=== PATIENT | female | born 1950 | race Caucasian/White ===

== ENCOUNTER 2021-11-17 09:23 | Emergency (ER) | payer MEDICARE, SELFPAY ==
[2021-11-17] VITALS (8 sets, daily range): BP systolic 140–157; BP diastolic 67–72; PULSE 68–92; RESP 14–20; TEMP 36.3; O2SAT 100
--- NOTE | ~2021-11-17 | CT_ITS ---
EXAMINATION: CT knee LT wo con DATE: 11/17/2021 12:31 INDICATION: Left knee pain post fall TECHNIQUE: High resolution computed tomography (CT) of the left knee was performed without intravenou s contrast. Additional sagittal and coronal reconstructions were performed. Automated exposure contro l and iterative reconstruction technique were employed. The dose-length product was 517.10 mGy-cm. COMPARISON: Left knee radiographs dated 11/17/2021 FINDINGS: Bone alignment is normal. No fracture. At least mild osteoarthritis with mild joint space narrowing i n the medial and patellofemoral compartments. No left knee joint effusion with small physiologic amou nt of fluid at the suprapatellar pouch. Mild cystic change at the posterior medial margin of the prox imal tibia underlying the footplate of the semimembranosus tendon. Soft tissues are unremarkable with no evident soft tissue swelling or reactive edema. Minimal vascular calcification along the normal c aliber popliteal artery. IMPRESSION: 1. No left knee joint effusion or acute osseous abnormality. Reviewed, dictated and finalized at location A. RANCE CLAIMS REPRESENTATIVE
--- NOTE | ~2021-11-17 | XR_ITS ---
XR knee LT 3V DATE: 11/17/2021 10:30 INDICATION: Fall today. Lateral pain. TECHNIQUE: 4 views including crosstable lateral COMPARISON: None FINDINGS: There is diffuse osteopenia. No fracture or dislocation or joint effusion is evident. No periosteal reaction or bone destruction. No radiopaque intra-articular loose body or chondral calcinosis. Mild loss of height of medial compartment joint space. IMPRESSION: Osteopenia and mild degenerative change No fracture or dislocation or joint effusion is detected Reviewed, dictated and finalized at location B. K OUT MAN
[2021-11-17] MEDS: HYDROcodone/acetaminophen (*CRX) 5-325 MG TABLET 1 TAB PO (10:00)
--- NOTE | 2021-11-17 10:07 | ED.GENADULT ---
HPI - General Adult General Chief complaint: Extremity Injury, Lower Stated complaint: knee injury Time Seen by Provider: 11/17/21 09:32 Source: patient and family (Daughter) Mode of arrival: EMS Limitations: no limitations History of Present Illness HPI narrative: Patient is 71-year-old female presented with chief complaint of left knee pain that has been progressively worsening over the past 2 to 3 weeks. Patient reports that she was working at the [employer] which requires a lot of standing as a part-time job but she continued to have knee pain which she attributes to repetitive pivoting and standing. Patient reports that she does have arthritis. Patient reports today she was in her bathroom when her knee gave out causing her to fall. Patient reports that she hit the left brow area of her head. Patient so her daughter that she passed out, the patient states she may have just been foggy. Patient reports that she was unable to get herself up so she called her daughter and a ambulance was contacted. Patient denies chest pain, shortness of breath, fever, chills, nausea, vomiting, prior surgeries to the knee. Patient reports that she takes aspirin daily but denies any other anticoagulant use. Patient denies changes in her vision or hearing, speech or motor delay or deficit. Related Data Home Medications Medication Instructions Recorded Confirmed aspirin 81 mg tablet,delayed 81 mg PO DAILY 08/29/19 08/02/21 release cholecalciferol (vitamin D3) 10 10 mcg PO DAILY 08/02/21 08/02/21 mcg (400 unit) capsule magnesium 250 mg tablet 250 mg PO DAILY 08/02/21 08/02/21 Allergies Allergy/AdvReac Type Severity Reaction Status Date / Time No Known Allergies Allergy Unverified 08/02/21 10:04 Review of Systems Review of Systems: CONSTITUTIONAL: Denies fever, chills, or sweats. EYES: Denies visual changes, redness, or discharge. ENT: Denies rhinorrhea, congestion, sore throat, or otalgia. CARDIOVASCULAR: Denies chest pain, palpitations, or edema. RESPIRATORY: Denies cough or dyspnea. GASTROINTESTINAL: Denies abdominal pain, nausea, vomiting, or diarrhea. GENITOURINARY: Denies dysuria or hematuria. SKIN: Denies rash or itching. MUSCULOSKELETAL: Reports left knee pain denies back pain, joint pain, or myalgia. NEUROLOGIC: Denies headache, numbness, dizziness, or weakness. PSYCHIATRIC: Denies anxiety or depression. FOR[facility]LY [facility] Past Medical History Medical History Hypertension Family History Family History Mother Acute myocardial infarction Cerebrovascular accident Grandparent Cerebrovascular accident Social History Social History Social History: , lives in [place], [place]. Smoking status: Former smoker Second hand tobacco smoke exposure: No Alcohol intake: current Alcohol use details: Drinks 2 glasses of wine nightly. lives in [place]. Exam Narrative: GENERAL: Well-appearing, well-nourished, and in no acute distress. HEAD: Normocephalic, contusion noted to left brow. EYES: PERRLA and EOMI. ENT: Nares clear, no rhinorrhea or epistaxis. Mucous membranes moist. Oropharynx without tonsillar hypertrophy exudate or other lesions. Bilateral TMs pearly hudson nonbulging. No hemotympanum. NECK: Supple. Nontender to palpation. Range of motion intact. CHEST: Clear to auscultation. No respiratory distress. No wheezes rales or rhonchi HEART: Regular rate and rhythm. EXTREMITIES: Patient refuses to flex the knee. Pain with palpation to the medial aspect of the knee. No erythema present however there is edema noted when compared to the right knee. No calf pain or tenderness. Patient will not tolerate anterior or posterior drawer test. SKIN: Warm, dry, no rash. NEURO: No focal deficits. Alert and oriented x3. Speech clear and appropriate
--- NOTE | 2021-11-17 12:30 | PC.NURSE ---
When trying to discharge patient patient was yelling out in pain stating I cannot take care of myself like this. JUSTIN Rouse notified
[2021-11-17] MEDS: MORPHINE SULFATE INJ (*CRX) 10 MG/ML AMP 2 MG IM (12:50)
--- NOTE | 2021-11-17 12:57 | PC.NURSE ---
Patient voided in pants and said I cannot take care of myself at home if I'm going to do this. I cannot move I don't know what you want me to do. there is no way I can go home like this
--- NOTE | 2021-11-17 13:33 | PC.NURSE ---
patient refused to leave because daughter and pt. stated they cannot take care of herself at home because she is in to much pain.
[2021-11-17] MEDS: IBUPROFEN 600 MG TABLET PO (13:43)
== END 2021-11-17 14:28 | disposition home or self-care (01) ==
PROVIDERS: Emergency Provider Emergency Medicine; PCP Nurse Practitioner Family
DX: S83.92XA Sprain of unspecified site of left knee, initial encounter (principal); S09.90XA Unspecified injury of head, initial encounter; I10 Essential (primary) hypertension; X50.3XXA Overexertion from repetitive movements, initial encounter
CPT/HCPCS: 73562; 73700; 96372; 99284; A9270; J2270

== ENCOUNTER → 2021-11-25 07:30 | Outpatient (CLI) | payer MEDICARE, SELFPAY ==
--- NOTE | ~2021-11-25 | MR_ITS ---
EXAMINATION: MR knee LT wo con DATE: 11/25/2021 08:16 INDICATION: Primary osteoarthritis of the left knee TECHNIQUE: Magnetic resonance imaging (MRI) of the left knee was performed without intravenous contra st. Sequences included coronal PD-weighted FSE, coronal PD-weighted FS FSE, sagittal T2-weighted FSE , sagittal PD-weighted FS FSE and axial PD weighted fat saturated FSE. COMPARISON: None. FINDINGS: Medial compartment: Medial meniscus is normal. Articular cartilage is normal. Lateral compartment: Lateral meniscus is normal. Articular cartilage is normal. Patellofemoral compartment: Deep chondral ulceration with underlying edema-like marrow signal change at the medial trochlea and c audal aspect of the trochlear groove as well as at the medial patellar facet. Ligaments and tendons: Anterior and posterior cruciate ligaments are normal. The medial collateral ligament and fibular jayne ateral ligament complex are normal. The extensor mechanism is normal. Mild tendinopathy without discr ete tear of the distal semimembranosus tendon with small intra and extra osseous ganglion cysts at th e footplate of the direct head of the semimembranosus tendon. The remaining visualized medial and lat eral hamstring tendons as well as the iliotibial band are normal. Fluid: Physiologic amount of fluid in the joint space. No loose osteochondral bodies identified. Osseous/other: Prominent marrow edema at the lateral femoral condyle surrounding a curvilinear low signal intensity trabecular impaction versus stress or insufficiency fracture line underlying the articular cortex at the anterior weightbearing lateral femoral condyle. Bone marrow signal is otherwise normal. No pathol ogic marrow replacing process. IMPRESSION: 1. Nondisplaced subarticular impaction versus stress or insufficiency fracture underlying the articul ar cortex at the anterior weightbearing lateral femoral condyle. 2. Moderate patellofemoral osteoarthritis with high-grade chondromalacia. Reviewed, dictated and finalized at location A. GER PROTEIN IMPRESSION: 1. Nondisplaced subarticular impaction versus stress or insufficiency fracture underlying the articular cortex at the anterior weightbearing lateral femoral c ondyle. 2. Moderate patellofemoral osteoarthritis with high-grade chondromalacia.
== END ==
PROVIDERS: PCP Nurse Practitioner Family
DX: M17.12 Unilateral primary osteoarthritis, left knee (principal); S72.422A Displaced fracture of lateral condyle of left femur, initial encounter for closed fracture
CPT/HCPCS: 73721

== ENCOUNTER 2023-09-21 16:38 | Emergency (ER) | payer MEDICARE, SELFPAY ==
--- NOTE | ~2023-09-21 | XR_ITS ---
EXAMINATION: XR wrist LT min 3V DATE: 09/21/2023 17:09 INDICATION: Left wrist pain post fall TECHNIQUE: Posteroanterior and lateral views of the left wrist were obtained. COMPARISON: none FINDINGS: Diffuse osteopenia. Comminuted intra-articular fracture of the distal left radius with a dominant obl ique fracture plane distally and dorsally from the volar metadiaphyseal region. The articular surface is divided into a small fragment comprising a small portion of the lunate fossa and a larger fragmen t comprising the majority of the articular surface which is displaced 4 mm radially, 5 mm nodular les ion and approximately 7 mm proximally. 5 mm volar, 4 mm associated with a large fragment of the metap hysis. There is 4 mm radial displacement of an avulsion fracture which extends across the base of the ulnar styloid process. There is normal internal alignment within the visualized left hand with teo l alignment of the carpus with respect to the dominant distal fragment of the radius. Moderate partic ular osteoarthritis involving the wrist, midcarpal, triscaphe, first carpometacarpal and multiple met acarpophalangeal and interphalangeal joints. There is prominent soft tissue swelling at the dorsal an d radial aspects of the wrist and distal forearm. IMPRESSION: 1. Mildly displaced comminuted intra-articular fracture of the distal left radius and mildly displace d avulsion fracture of the ulnar styloid process. 2. Moderate polyarticular osteoarthritis at the left wrist and hand. Reviewed, dictated and finalized at location A. RY COOK HELPER IMPRESSION: 1. Mildly displaced comminuted intra-articular fracture of the distal left radi us and mildly displaced avulsion fracture of the ulnar styloid process. 2. Moderate polyarticular osteoarthritis at the left wrist and hand.
--- NOTE | 2023-09-21 17:34 | ED.UPPEXIN ---
HPI - Extremity Injury (Upper) General Chief Complaint: Extremity Injury, Upper Stated Complaint: L WRIST INJURY Source: patient Mode of arrival: ambulatory Limitations: no limitations History of Present Illness HPI narrative: 73-year-old female presented for complaint of left wrist pain and obvious deformity after fall about 2 hours prior to arrival. She states she was in [place] parking garage when she tripped and fell, and landed on the left hand palm to ground. States she drove herself home, but noticed increased swelling and pain. Unable to move the wrist due to pain. Able to move fingers and has normal sensation to fingers; denies numbness or tingling. Denies any other injuries. Related Data Home Medications Medication Instructions Recorded Confirmed aspirin 81 mg tablet,delayed 81 mg PO DAILY 08/29/19 09/21/23 release (Adult Low Dose Aspirin) cholecalciferol (vitamin D3) 10 10 mcg PO DAILY 08/02/21 09/21/23 mcg (400 unit) capsule magnesium 250 mg tablet 250 mg PO .QOD 02/04/22 09/21/23 Allergies Allergy/AdvReac Type Severity Reaction Status Date / Time No Known Allergies Allergy Verified 09/21/23 19:10 Review of Systems Review of Systems: CONSTITUTIONAL: Denies body aches, fever, chills EYES: Denies visual changes ENT: Denies rhinorrhea, congestion CARDIOVASCULAR: Denies chest pain, palpitations, or edema. RESPIRATORY: Denies cough or dyspnea. GASTROINTESTINAL: Denies abdominal pain, nausea, vomiting, or diarrhea. SKIN: Denies rash, itching, or wounds. MUSCULOSKELETAL: Reports left wrist deformity, pain denies back pain, joint pain, or myalgia. NEUROLOGIC: Denies headache, numbness, tingling, or weakness. All systems reviewed & are unremarkable except as noted in HPI and below PMFSH Past Medical History Medical History Hypertension Situational anxiety Family History Family History Mother Acute myocardial infarction Cerebrovascular accident Grandparent Cerebrovascular accident Social History Social History Social History: , lives in [place], [place]. Smoking status: Former smoker Second hand tobacco smoke exposure: No Alcohol intake: current Alcohol use details: Drinks 2 glasses of wine nightly. lives in [place]. Comments At time of signature, I have reviewed and agree with nursing past medical, surgical, social and family history unless otherwise noted. Please see nursing chart for further information. There is no relevant family history pertinent to the presenting complaint Exam Narrative: GENERAL: Appears in mild pain, in no acute distress. CHEST: Speaks in full sentences. No respiratory distress. HEART: Regular rate and rhythm. Normal and equal peripheral pulses. EXTREMITIES: Left distal forearm with obvious deformity; skin intact. Large amount of soft tissue swelling and ecchymosis over the dorsal aspect from wrist to mid forearm. Unable to tolerate any range of motion of wrist due to pain with movement. Right hand has normal sensation, able to tolerate movement of fingers; pain reported with movement of the thumb. No open wounds. Radial pulse strong palpable and equal bilaterally, skin warm, dry, pink. Capillary refill less than 3 seconds. SKIN: Warm, dry, right palm with small superficial abrasion approx 0.5cm diameter, no active bleeding or apparent fb. NEURO: Alert and oriented x3. PSYCH: Normal mood and affect Course Course Emergency Course: Patient is aware of diagnosis, understands and agrees to treatment plan. Anticipatory guidance given. Patient agrees to follow-up as directed and is aware of reasons to seek care at the emergency department. Portions of this record may have been created with voice recognition software Level of Care: Express Care Visit
[2023-09-21 17:38] VITALS: BP 112/101; PULSE 84; RESP 16; TEMP 36.9; O2SAT 100
[2023-09-21] MEDS: IBUPROFEN 600 MG TABLET PO (17:42)
== END 2023-09-21 18:55 | disposition short-term general hospital (02) ==
PROVIDERS: Emergency Provider Nurse Practitioner Family; PCP Family Medicine Sports Medicine
DX: S52.572A Other intraarticular fracture of lower end of left radius, initial encounter for closed fracture (principal); S52.612A Displaced fracture of left ulna styloid process, initial encounter for closed fracture; W01.0XXA Fall on same level from slipping, tripping and stumbling without subsequent striking against object, initial encounter; I10 Essential (primary) hypertension; Z87.891 Personal history of nicotine dependence; Z79.82 Long term (current) use of aspirin
CPT/HCPCS: 29125; 73110; 99214; A9270; G0463

== ENCOUNTER 2023-09-21 19:10 | Emergency (ER) | payer MEDICARE, SELFPAY ==
--- NOTE | ~2023-09-21 | XR_ITS ---
EXAMINATION: XR wrist LT 2V DATE: 09/21/2023 21:36 INDICATION: Distal left radius fracture status post reduction. TECHNIQUE: 2 views of left wrist were obtained. COMPARISON: Left wrist radiographs 09/21/2023 at 5:04 PM FINDINGS: There is a comminuted fracture of distal radius with involvement of the distal articular mccann rface. The main distal fracture fragment demonstrates impaction and 6 mm palmar displacement. There i s an avulsion fracture of the ulnar styloid. There is severe osteoarthritis of first carpometacarpal joint and mild osteoarthritis of triscaphe joint. IMPRESSION: 1. Fracture of distal radius without change in alignment. 2. Avulsion fracture of the ulnar styloid. Reviewed, dictated and finalized at location E. SER ALL AROUND
[2023-09-21 19:22] VITALS: BP 153/65; PULSE 70; RESP 17; TEMP 37.4; O2SAT 100
--- NOTE | 2023-09-21 20:18 | ED.UPPEXIN ---
HPI - Extremity Injury (Upper) General Chief Complaint: Extremity Injury, Upper Stated Complaint: sent from [facility] for multiple fractures Time Seen by Provider: 09/21/23 20:11 Source: patient and family Mode of arrival: ambulatory Limitations: no limitations History of Present Illness HPI narrative: patient tripped on a curb and fell, injuring left wrist. She denies other injuries. History of hypertension, on baby aspirin. Related Data Home Medications Medication Instructions Recorded Confirmed aspirin 81 mg tablet,delayed 81 mg PO DAILY 08/29/19 09/21/23 release (Adult Low Dose Aspirin) cholecalciferol (vitamin D3) 10 10 mcg PO DAILY 08/02/21 09/21/23 mcg (400 unit) capsule magnesium 250 mg tablet 250 mg PO .QOD 02/04/22 09/21/23 Allergies Allergy/AdvReac Type Severity Reaction Status Date / Time No Known Allergies Allergy Verified 09/21/23 20:22 Review of Systems Review of Systems: All systems reviewed & are unremarkable except as noted in HPI and below PMFSH Past Medical History Medical History Hypertension Situational anxiety Family History Family History Mother Acute myocardial infarction Cerebrovascular accident Grandparent Cerebrovascular accident Social History Social History Social History: , lives in [place], [place]. Smoking status: Former smoker Second hand tobacco smoke exposure: No Alcohol intake: current Alcohol use details: Drinks 2 glasses of wine nightly. lives in [place]. Exam Narrative: General appearance: Well-developed, well-nourished Skin: Normal color Head: Normocephalic, nontraumatic Eyes: Clear conjunctiva ENT: Oropharynx normal, ears normal, nose normal Neck: Supple, nontender Chest and respiratory: Airway patent, no respiratory distress, no accessory muscle use Heart: Regular rate/rhythm Abdomen: Soft, nontender, no organomegaly, quiet bowel sounds Vascular: Normal peripheral pulses, normal capillary refill. Musculoskeletal: Left wrist showed severe diffuse tenderness, limited range of motion, deformity intact radial pulse Neurologic: Alert and oriented ?3, HORSE RIDER is normal as tested, no gross motor deficit Course Consultations Consultation #1: DR ALEJANDRA AGREED WITH THE POST REDUCTION X-RAY , RECOMMENDS THE PATIENT CALL HIS OFFICE TOMORROW FOR APPOINTMENT Date: 09/21/23 Time: 22:31 Vital Signs Vital signs: Vital Signs Temperature 37.4 C 09/21/23 19:22 Pulse Rate 70 09/21/23 19:22 Respiratory Rate 17 09/21/23 19:22 Blood Pressure 153/65 H 09/21/23 19:22 Pulse Oximetry 100 09/21/23 19:22 Oxygen Delivery Room Air 09/21/23 19:22 Temperature 37.4 C 09/21/23 19:22 Pulse Rate 70 09/21/23 19:22 Respiratory Rate 17 09/21/23 19:22 Blood Pressure 153/65 H 09/21/23 19:22 Pulse Oximetry 100 09/21/23 19:22 Oxygen Delivery Room Air 09/21/23 19:22 Procedures Orthopedic Fracture Reduction Fracture #1: Fracture Reduction date: 09/21/23 Fracture Reduction time: 21:35 Time Out Performed: Yes (20) Side: left Fracture Reduction Location: radius and ulna Analgesia: hematoma block Pre-Procedure Neuro Vascular Exam: normal Technique: direct manipulation and traction/counter-traction Post Reduction X-rays Demonstrate: anatomical reduction Post-reduction neuro exam: intact Post-reduction vascular exam: intact Splint Applied: Yes Patient Tolerated Procedure: well Crit
[2023-09-21] MEDS: ONDANSETRON INJ 4 MG/2 ML VIAL IV PUSH (20:59)
[2023-09-21] MEDS: fentaNYL CITRATE INJ (*CRX) 100 MCG/2 ML VIAL 25 MCG IV PUSH (20:59)
[2023-09-21] MEDS: HYDROcodone/acetaminophen (*CRX) 5-325 MG TABLET 1 TAB PO (22:34)
== END 2023-09-21 22:35 | disposition home or self-care (01) ==
PROVIDERS: Emergency Provider Emergency Medicine; PCP Family Medicine Sports Medicine
DX: S52.592A Other fractures of lower end of left radius, initial encounter for closed fracture (principal); S52.612A Displaced fracture of left ulna styloid process, initial encounter for closed fracture; I10 Essential (primary) hypertension; Z87.891 Personal history of nicotine dependence; W10.1XXA Fall (on)(from) sidewalk curb, initial encounter
CPT/HCPCS: 25605; 25624; 73100; 73110; 96374; 96375; 99285; A4565; A9270; J2405; J3010

== ENCOUNTER 2023-09-25 13:01 | Outpatient (CLI) | payer MEDICARE, SELFPAY ==
--- NOTE | 2023-09-25 13:45 | ECG_ITS ---
Measurements Intervals Secor Rate: 67 P: 55 DE: 156 QRS: 10 QRSD: 98 T: 46 QT: 421 QTc: 447 Interpretive Statements SINUS RHYTHM INCOMPLETE RIGHT BUNDLE BRANCH BLOCK [90+ ms QRS DURATION, TERMINAL R IN V1/V2, 40+ ms S IN I/aVL/V4/V5/V6] BORDERLINE ECG NO PREVIOUS ECG AVAILABLE FOR COMPARISON Electronically Signed On 09-25-2023 14:59:07 TAILMAN by Samir Culver M.D.
== END 2023-09-25 13:02 | disposition home or self-care (01) ==
PROVIDERS: PCP Family Medicine Sports Medicine; Visit Provider Orthopaedic Surgery
DX: I10 Essential (primary) hypertension (principal); I45.10 Unspecified right bundle-branch block
CPT/HCPCS: 93005

== ENCOUNTER 2023-09-28 00:13 | Day surgery (SDC) | payer MEDICARE, SELFPAY ==
--- NOTE | 2023-09-25 13:22 | PC.NURSE ---
Report to the Outpatient Waiting Room, entrance under the green pavilion located off [facility], at time _1100 on date __09/28/23 . Planned Procedure Time: ___1300 . Time changes happen often and if your time is changed the preop area will call you the afternoon before. - You and your visitor will be asked to self-screen and do not enter if you have any COVID symptoms. - A mask is optional within the hospital at this time. Patients may have clear liquids (water, carbonated beverages, clear teas, apple juice) until 3 hours prior to surgery( 10AM ) with a maximum of 20 ounces. - No food from midnight until time of surgery - Infants may have breast milk until 4 hours before surgery, infant formula 6 hours prior to surgery. - Children will be allowed to drink immediately following surgery. If applicable, please bring a bottle or sippy cup to assist with drinking. Juice, water, soda, and popsicles are readily available. For infants on formula, please bring formula the day of surgery. Pacifiers are allowed. Take the following medications with a SIP of water the morning of surgery: DO NOT STOP ANY OF YOUR OTHER PRESCRIPTION MEDICATIONS PRIOR TO SURGERY ?EXCEPT THE FOLLOWING Medications to discontinue per physician PATIENT STATES HOLD ASPIRIN AND VITAMINS OF TODAY PER DR ALEJANDRA Date to take last dose Please no make-up, nail hebrew, hairspray, perfume, deodorant, or body powder the day of surgery. No jewelry (including any body piercings) or valuables the day of surgery, leave them at home. Please take a shower or bath the night before, or the morning of, surgery with an antibacterial soap. Wear comfortable, loose fitting clothing. Children are encouraged to wear pajamas. - Jewelry must be removed prior to entering the operating room. Rings and piercings that are not removed may be cut off. - The hospital will not accept responsibility for valuables. - Please leave all valuables, including medications, at home the day of surgery. If you are going home after surgery, a licensed regional company truck driver must drive you home. - NO public transportation without another adult if you receive anesthesia. - We recommend that an adult stay with you for 24 hours following discharge. - We also recommend that you do not drive, make important decision, drink alcoholic beverages, or take any drugs that were not prescribed by your health care provider for at least 24 hours after your discharge time. For Pediatric surgeries, we recommend two adults accompany the child home. Follow any additional instructions given to you from your surgeon. If you or anyone in your household have experienced Covid symptoms in the past week, please notify your surgeon or the nurse liaison at the phone number below for possible testing. Telephone instructions given to __PATIENT and asked if any additional questions and then verbalized understanding. Patient advised to call surgeon office or pre surgery nurse liaison [phone] if any additional questions.
[2023-09-25 13:33] VITALS: BP 148/69; PULSE 69; RESP 18; TEMP 36.5; O2SAT 97; BMI 25.2
[2023-09-28] VITALS (7 sets, daily range): BP systolic 118–181; BP diastolic 69–105; PULSE 68–80; RESP 14–18; TEMP 36.8; O2SAT 98–100
--- NOTE | ~2023-09-28 | XR_ITS ---
EXAMINATION: XR surgery orthopedic DATE: 09/28/2023 14:32 INDICATION: ORIF left wrist fracture TECHNIQUE: 4 fluoroscopic images of the left wrist were obtained during procedure performed by Dr. Wu cuellar. Radiologist was not present for the imaging or procedure. The amount of fluoroscopy time used during this procedure was 0.2 minutes. COMPARISON: 09/25/2023 FINDINGS: Interval open reduction internal fixation of a comminuted intra-articular fracture of the d istal left radius with a volar T plate and screw fixation. Alignment post fixation appears near anato tiffany. No significant fracture gap or incongruity evident at the distal articular surface. Again seen i s mild distraction of a fracture across the base of the ulnar styloid process. 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 IMPRESSION: 1. Near-anatomic alignment post reduction internal fixation of a comminuted intra-articular fracture of the distal left radius. 2. Unchanged mild distraction of the avulsion fracture of the ulnar styloid process. Reviewed, dictated and finalized at location A. AL WORK ADMINISTRATOR IMPRESSION: 1. Near-anatomic alignment post reduction internal fixation of a comminuted int ra-articular fracture of the distal left radius. 2. Unchanged mild distraction of the avulsion fracture of the ulnar styloid pro cess.
--- NOTE | 2023-09-28 08:51 | WPDHPUPDATE1 ---
History and Physical Update Update Date/Time: 09/28/23 08:51 History and Physical has been reviewed, including an updated exam of the patient. There are NO changes in the patient's condition. Risks, benefits, and alternatives have been discussed and questions answered. Patient agrees to proceed with procedure.
[2023-09-28] MEDS: ACETAMINOPHEN 500 MG TABLET 1000 MG PO (11:30)
[2023-09-28] MEDS: KETOROLAC 15 MG/ML VIAL (*BKC) IV PUSH (11:40)
[2023-09-28] MEDS: LACTATED RINGERS 1,000 ML 30 ML IV CONT ×2 (11:40→14:52)
--- NOTE | 2023-09-28 13:13 | P.PNAN_ITS ---
Anes - Initial Pre Proc Eval Procedure: Operation Date: 09/28/23 13:00 Proposed Procedures p Open Reduction Internal Fixation Left Wrist Fracture - Chay Berry MD Date/Time: 09/28/23 13:13 Surgeon: Chay Berry MD Pre Op Diagnosis: left wrist fracture Patient Data Age: 73 Gender: F Height: 1.63 m Weight: 65 kg Last Vital Signs Temp 36.5 C 09/25/23 13:33 Pulse 69 09/25/23 13:33 Resp 18 09/25/23 13:33 BP 148/69 H 09/25/23 13:33 Pulse Ox 97 09/25/23 13:33 O2 Del Method Room Air 09/25/23 13:33 Allergies Allergy/AdvReac Type Severity Reaction Status Date / Time No Known Allergies Allergy Verified 09/25/23 13:12 Home Medications Medication Instructions Recorded Confirmed Type aspirin 81 mg tablet,delayed 81 mg PO HS 08/29/19 09/25/23 History release (Adult Low Dose Aspirin) cholecalciferol (vitamin D3) 10 10 mcg PO DAILY 08/02/21 09/25/23 History mcg (400 unit) capsule oxycodone-acetaminophen 5 mg-325 1 tablet PO Q4H PRN pain #20 tabs 09/21/23 09/25/23 Rx mg tablet (Percocet) amlodipine 5 mg tablet 5 mg PO HS 09/25/23 09/25/23 History benazepril 10 mg tablet 10 mg PO HS 09/25/23 09/25/23 History Patient hx anesthesia problems: none Family hx anesthesia problems: none Results Review: All pre-operative results and documents have been reviewed as part of the pre- operative evaluation. [facility] Past Medical History Medical History Hypertension Situational anxiety Family History Family History Mother Acute myocardial infarction Cerebrovascular accident Grandparent Cerebrovascular accident Social History Social History Social History: , lives in [place], [place]. Smoking status: Never smoker Second hand tobacco smoke exposure: No Alcohol intake: current Drinks per week: 10 Alcohol use details: Drinks 2 glasses of wine nightly. lives in [place]. Living arrangements: alone Spiritual care concerns: No Anes - Eval Final PreProcedure Day of Procedure 09/28/23 13:13 Patient weight: normal Heart: regular rate and rhythm Lungs: clear to auscultation Airway: Mallampati scale class II Neurological: alert and oriented Last oral intake: >/= 8 hours ASA classification: II Emergent: no Anesthetic plan: proceed Anesthesia type and monitoring: general LMA and standard monitoring Results Review: All pre-operative results and documents have been reviewed as part of the pre- operative evaluation. Informed Consent: The patient's anesthetic plan and its attendant risks and benefits were discussed with the patient/family/POA. Questions were solicited and answers provided to the satisfaction of the patient/family/POA.
--- NOTE | 2023-09-28 13:21 | W.PM.PROC2 ---
Procedure Note - Detailed Date of Procedure 09/28/23 Pre-op Diagnosis left wrist fracture Post-op Diagnosis Same Procedure Performed Open reduction internal fixation left distal radius fracture, fixation more than 3 fragments. Surgeon Chay Berry MD Program Paraprofessional 1st department assistant Anesthesia General Indications 73-year-old woman who fell onto her left outstretched hand. Sustained a fracture of the distal radius with displacement. Presents for operative treatment. Findings Comminuted distal radius fracture with intra-articular extension and multiple fragments. Description of Procedure After informed consent the operative extremity was marked in the preoperative holding area. Patient received intravenous antibiotics. Patient taken to the operating room where they underwent general anesthesia. Positioned supine on operating table. Time-out performed confirming the patient, patient's site of surgery and the plan. Left upper extremity prepped and draped in the usual sterile surgical fashion using a ChloraPrep skin solution. Hand and wrist exsanguinated and arm tourniquet inflated to 225 mmHg. Standard volar flexor carpi radialis incision utilized. Fifteen blade knife used to make longitudinal incision. Flexor carpi radialis tendon identified tendon sheath incised in line with skin incision. Tendon retracted to protect the neurovascular elements. Floor of the tendon sheath incised with a 15 blade knife. Flexor pollicis retracted medial. pronator quadratus then divided off the watershed line and reflected ulnarward to expose the distal radius and the fracture. Fracture was then reduced provisionally pinned. Image intensification confirm reduction. Fixation achieved with the distal radius volar plate. This was provisionally pinned into place and confirmed with image intensification. Fixation to the proximal fragment with a 3.5 mm screw. Distal fracture fixation achieved with 2.0 mm locking pegs and 2.0 mm fully threaded locking screws for the radial styloid. Fixation was then completed proximally with the remaining 3.5 mm screws. Final reduction of the fracture, alignment of the wrist joint and placement of the hardware verified with image intensification. Wound thoroughly irrigated with antibiotic solution. Pronator repaired with 3 0 Monocryl interrupted suture. Skin closed with interrupted subcutaneous 000 Monocryl interrupted suture and running 000 Monocryl subcuticular stitch. Local anesthetic with 0.5% Marcaine. Sterile dressing applied. Padded dressing and splint then applied. Tourniquet released and good capillary refill noted in the fingers and thumb. Patient awoke from anesthesia, extubated and taken to the recovery room in stable condition. All sponge and instrument counts correct at the end of case. [employer] volar distal radial locking plate with pegs and screws. Estimated Blood Loss 5 Tourniquet Time 55 Drains No Packing No Pathology None sent Complications None Condition Stable Disposition PACU [facility] Billing Surgery - Charge Forward: Surgery Billing ([id number])
[2023-09-28] MEDS: fentaNYL CITRATE INJ (*CRX) 100 MCG/2 ML VIAL 25 MCG IV PUSH ×8 (14:59→15:21)
[2023-09-28] MEDS: HYDROmorphone HCL INJ (*CRX) 1 MG/ML SYR 0.5 MG IV PUSH ×2 (15:31→15:36)
== END 2023-09-28 17:00 | disposition home or self-care (01) ==
PROVIDERS: PCP Family Medicine Sports Medicine; Visit Provider Orthopaedic Surgery
PROC: (CPT 25575; principal; 2023-09-28 13:00)
DX: S52.572A Other intraarticular fracture of lower end of left radius, initial encounter for closed fracture (principal); W01.0XXA Fall on same level from slipping, tripping and stumbling without subsequent striking against object, initial encounter; I10 Essential (primary) hypertension; Z79.82 Long term (current) use of aspirin; Z87.891 Personal history of nicotine dependence
CPT/HCPCS: 25609; 99199; A9270; C1713; J1100; J1170; J1885; J1940; J2405; J2704; J3010; J7120